=== PATIENT | male | born 1965 | race Caucasian/White ===

== ENCOUNTER → 2016-11-02 | Outpatient (CLI) | payer BC, OTHER | LOC: FIMAGING 07:11 | PROVIDERS: ATTEND Physician Assistant | DX: M54.32 Sciatica, left side (principal); M54.16 Radiculopathy, lumbar region; M51.26 Other intervertebral disc displacement, lumbar region; M51.37 Other intervertebral disc degeneration, lumbosacral region; M76.892 Other specified enthesopathies of left lower limb, excluding foot ==

== ENCOUNTER → 2016-11-13 | Outpatient (CLI) | payer OTHER | LOC: FIMAGING 15:50 | PROVIDERS: ATTEND Physician Assistant | DX: M48.06 Spinal stenosis, lumbar region (principal); M51.36 Other intervertebral disc degeneration, lumbar region; M51.27 Other intervertebral disc displacement, lumbosacral region; M12.88 Other specific arthropathies, not elsewhere classified, other specified site; D18.09 Hemangioma of other sites ==

== ENCOUNTER → 2016-11-24 | Outpatient (CLI) | payer OTHER | LOC: BMCIMAGING 07:52 | PROVIDERS: ATTEND Physician Assistant | DX: N28.1 Cyst of kidney, acquired (principal); N40.0 Benign prostatic hyperplasia without lower urinary tract symptoms ==